=== PATIENT | female | born 1950 | race Caucasian/White ===

== ENCOUNTER 2018-02-17 11:51 | Emergency (ER) | payer OTHER ==
[~2018-02-17] VITALS: Ht 154.9 cm; Wt 102.5 kg
[2018-02-17 12:27] LABS: ABSOLUTE EOSINOPHILS 0.1 thou/uL (0.0-0.7); ABSOLUTE LYMPHOCYTES 1.2 thou/uL (0.8-5.3); ABSOLUTE MONOCYTES 0.6 thou/uL (0.0-1.2); ABSOLUTE NEUTROPHILS 4.6 thou/uL (1.6-8.1); BASOPHILS 0.7 %; HEMATOCRIT 40.9 % (37.0-47.0); HEMOGLOBIN 13.6 gm/dL (12.0-15.0); LYMPHOCYTES 17.9 %; MCH 29.4 pg (26.0-34.0); MCHC 33.3 g/dL (28.0-37.0); MCV 88.2 fL (80.0-100.0); MONOCYTES 8.9 %; MPV 9.5 fl. (7.2-11.1); NUCLEATED RBCS 0 /100WBC; PLATELET COUNT* 215 thou/uL (150-400); POLYS 70.5 %; RBC 4.64 mil/uL (4.20-5.00); RDW-CV 14.4 % (10.5-14.5); WBC 6.6 thou/uL (4.0-11.0)
[2018-02-17 12:46] LABS: CALCIUM 9.3 mg/dL (8.5-10.1); CREATININE 0.9 mg/dL (0.6-1.3); POTASSIUM 3.5 mmol/L (3.5-5.1)
[2018-02-17 12:51] LABS: ALBUMIN 3.2 g/dL (3.4-5.0); TOTAL BILIRUBIN 0.3 mg/dL (<0.1-1.0); TOTAL PROTEIN 7.4 g/dL (6.4-8.2)
[2018-02-17 13:39] LABS: ESR (SEDRATE) 21 mm/hr (0-30)
[2018-02-17 13:55] VITALS: BP 158/67
== END 2018-02-17 13:55 | disposition home or self-care (01) ==
LOC: EDBD 11:51 → M.ERS 11:51
PROVIDERS: Nurse Practitioner Family
DX: I10 Essential (primary) hypertension (principal); Z88.8 Allergy status to other drugs, medicaments and biological substances; Z91.010 Allergy to peanuts